=== PATIENT | female | born 1950 | race Caucasian/White ===

== ENCOUNTER 2020-02-22 23:04 | Emergency (ER) | payer MEDICARE, BC ==
[~2020-02-22 23:04] MED LIST: Acetaminophen/HYDROcodone 325-5 MG Tab ONE; predniSONE 10 MG Tab ONE
[2020-02-22 23:39] VITALS: BP 150/94; PULSE 84
--- NOTE | 2020-02-23 16:55 | EDM.PDOC ---
ED HPI GENERAL MEDICAL PROBLEM - General Chief Complaint: Upper Extremity Injury/Pain Stated Complaint: Rt hand pain Time Seen by Provider: 02/23/20 00:11 Source of Information: Reports: Patient History Limitations: Reports: No Limitations - History of Present Illness INITIAL COMMENTS - FREE TEXT/NARRATIVE: Patient with history of right wrist and hand pain. Has been sewing and using scissors to cut fabric to sew mask for Covid pandemic. Started in am with slight discomfort and discomfort has worsened with pain 9/10 at this time . Has been treatesd wtih prednisone several times in past for similar pain. Comlains of numbness in fingers of all five finger of right hand. Also complains of mild swelling of fingers on right hand. Hisotry of arthritis and states she has had carpal tunnel problems in past. 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) Right Hand Pain Score (Numeric/FACES): 9 - Related Data Allergies Allergy/AdvReac Type Severity Reaction Status Date / Time Sulfa (Sulfonamide Allergy Rash Verified 06/04/15 12:50 Antibiotics) Home Meds: Home Meds Lisinopril 5 mg PO DAILY 06/04/15 [History] Simvastatin 20 mg PO BEDTIME 06/04/15 [History] Past Medical History HEENT History: Reports: Impaired Vision Cardiovascular History: Reports: Hypertension Other Genitourinary History: bladder falling a little 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 Social & Family History - Tobacco Use Smoking Status *Q: Former Smoker Years of Tobacco use: 30 Used Tobacco, but Quit: Yes Month/Year Tobacco Last Used: 2006 Second Hand Smoke Exposure: No - Caffeine Use Caffeine Use: Reports: Coffee - Recreational Drug Use Recreational Drug Use: No Review of Systems - Review of Systems Review Of Systems: See Below Constitutional: Denies: Chills, Fever Respiratory: Denies: Shortness of Breath, Cough Cardiovascular: Denies: Chest Pain GI/Abdominal: Denies: Diarrhea, Nausea, Vomiting Genitourinary: Reports: No Symptoms Skin: Reports: Other Neurological: Reports: Numbness, Tingling, Other (of right hand all 5 fingers) Psychiatric: Reports: No Symptoms ED EXAM, GENERAL - Physical Exam Exam: See Below Exam Limited By: No Limitations General Appearance: Alert, Mild Distress Head: Atraumatic, Normocephalic Neck: Normal Inspection, Supple, Non-Tender Respiratory/Chest: No Respiratory Distress Extremities: Other (Mild ) Skin Exam: Warm, Intact, No Rash (Decreased sensation over palnar surface of all 5 fingers) Course - Vital Signs Last Recorded V/S: Last Vital Signs Temp 98.0 F 02/22/20 23:32 Pulse 84 02/22/20 23:32 Resp 16 02/22/20 23:32 BP 150/94 H 02/22/20 23:32 Pulse Ox 95 02/22/20 23:32 - Orders/Labs/Meds Labs: Laboratory Tests 02/23/20 02/23/20 Range/Units 00:35 00:35 WBC 8.7 (4.0-11.0) K/uL RBC 4.46 (3.80-5.80) M/uL Hgb 12.2 (11.5-16.5) g/dL Hct 38.2 (37.0-47.0) % MCV 86 (76-96) fL MCH 27.4 (27.0-32.0) pg MCHC 31.9 (31.0-35.0) g/dL RDW 13.7 (11.0-16.0) % Plt Count 252 (150-500) K/uL MPV 11.1 H (6.0-10.0) fL Neut % (Auto) 58.5 (45.0-70.0) % Lymph % (Auto) 29.0 (20.0-40.0) % [place] % (Auto) 8.0 (3.0-10.0) % Eos % (Auto) 3.7 (1.0-5.0) % Baso % (Auto) 0.8 H (0.0-0.5) % Neut # (Auto) 5.09 (2.00-7.50) K/uL Lymph # (Auto) 2.53 (1.50-4.00) K/uL [place] # (Auto) 0.70 (0.20-0.80) K/uL Eos # (Auto) 0.32 (0.04-0.40) K/uL Baso # (Auto) 0.07 (0.02-0.10) K/uL Uric Acid 4.2 (2.6-7.2) mg/dL - Re-Assessments/Exams Free Text/Narrative Re-Assessment/Exam: 02/23/20 17:10 Uric acid negative for elevation decreasing Right wrist x ray consistent with osteoarthritis by my reading. Differential includes Gout but unlikely due to low uric acid Carpal tunnel but with numbness in all fingers on exam less likely as usually only median nerve distribution Osteoarthritis with wrist swelling and radiculopathy most likely diagnosis but may need nerve conduction studies 02/23/20 18:32 Free Text/Narrative Re-Assessment/Exam: 02/23/20 17:14 Patietn treated with splint . Has splint at home and sling to keep hand elevated. Started on Tylenol and prednisone for inflammation of wrist Etiology to be determined . patietn may require carpal tunnel syndrome testing such as nerve conduction studies Departure - Departure Time of Disposition: 01:15 Disposition: Home, Self-Care 01 Clinical Impression: Wrist pain, acute Qualifiers: Laterality: right Qualified Code(s): M25.531 - Pain in right wrist - Discharge Information *PRESCRIPTION DRUG MONITORING PROGRAM REVIEWED*: No *COPY OF PRESCRIPTION DRUG MONITORING REPORT IN PATIENT BASSEM: No Instructions: Acetaminophen; Hydrocodone tablets or capsules, Osteoarthritis, Prednisone tablets Referrals: PCP,None [Primary Care Provider] - Forms: ED Department Discharge Additional Instructions: Take prednisone as ordered: 40mg daily for 5 days hydrocodone/APAP for pain. 1 tablet every 4-6 hours. May take tylenol also but remember that there is 325mg tylenol in pain medication. Not to exceed 4000mg in 24 hours. May wear sling, elevate right hand. Rest hand as much as possible Follow up with MD at clinic in 5 days regarding Osteo Arthritis possibly carpal tunnel Sepsis Event Note - Evaluation Sepsis Screening Result: No Definite Risk - Focused Exam Date Exam was Performed: 02/25/20 Time Exam was Performed: 08:38
--- NOTE | 2020-02-24 11:27 | CR ---
DATE OF SERVICE: 02/23/20 CLINICAL DATA: pain RIGHT HAND: Comparison is made to a prior exam dated 05/10/07. There is diffuse osteopenia. There are mild osteoarthritic changes involving multiple joints of the hand and wrist. No acute fracture or dislocation. No focal lytic or blastic bone lesions. [id number] [facility]
== END 2020-02-23 01:16 | disposition home or self-care (01) ==
LOC: LB.ED 23:04
DX: M25.531 Pain in right wrist (principal); I10 Essential (primary) hypertension; Z79.899 Other long term (current) drug therapy; Z88.2 Allergy status to sulfonamides; Z87.891 Personal history of nicotine dependence
CPT/HCPCS: 36415; 73120-RT; 84550; 85025; 99283; A9270-GY; J7512

== ENCOUNTER 2020-06-03 19:23 | Emergency (ER) | payer MEDICARE, BC ==
[2020-06-03] MEDS ORDERED: Acetaminophen/Codeine 300-30 MG Tab ONE (20:00)
--- NOTE | 2020-06-03 20:09 | EDM.PDOC ---
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 - Related Data Allergies Allergy/AdvReac Type Severity Reaction Status Date / Time Sulfa (Sulfonamide Allergy Rash Verified 06/04/15 12:50 Antibiotics) Home Meds: Home Meds Lisinopril 5 mg PO DAILY 06/04/15 [History] Simvastatin 20 mg PO BEDTIME 06/04/15 [History] Past Medical History HEENT History: Reports: Impaired Vision Cardiovascular History: Reports: Hypertension Other Genitourinary History: bladder falling a little 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 Social & Family History - Caffeine Use Caffeine Use: Reports: Coffee Review of Systems - Review of Systems Review Of Systems: See Below Constitutional: Reports: No Symptoms Musculoskeletal: Reports: Hand Pain Skin: Reports: No Symptoms Neurological: Reports: No Symptoms Psychiatric: Reports: No Symptoms ED EXAM, GENERAL - Physical Exam Exam: See Below Exam Limited By: No Limitations General Appearance: Alert, WD/WN, No Apparent Distress Head: Atraumatic, Normocephalic Neck: Normal Inspection, Supple Respiratory/Chest: No Respiratory Distress, Lungs Clear, Normal Breath Sounds Cardiovascular: Normal Peripheral Pulses, Regular Rate, Rhythm, No Edema Peripheral Pulses: 4+: Radial (R) Extremities: Normal Inspection, Normal Range of Motion, Normal Capillary Refill. No: Arm Pain, Zayra's Sign, Limited Range of Motion, Increased Warmth Neurological: Alert, Oriented, CN II-XII Intact, Normal Cognition, Normal Reflexes, No Motor/Sensory Deficits Skin Exam: Warm, Dry, Intact Course - Re-Assessments/Exams Free Text/Narrative Re-Assessment/Exam: 06/03/20 20:05 Pt has a h/o carpal tunnel syndrome - intermittently exacerbated pain. Pt states her primary is working getting her a referral to health information internship. Since her wrist pain comes and goes over the past year or two she has not been referred to ortho for any surgical procedure at this time. she has a wrist splint and sling at home but not wearing. Pt was given our bottle of T3 with instructions to take 1-2 tabs as needed for pain every 4-6 hrs and to wear her wrist splint. follow-up with her primary if not improving over next few days. Departure - Departure Time of Disposition: 20:09 Disposition: [facility] To [facility]ing 61 Condition: Good Clinical Impression: Wrist arthralgia, Carpal tunnel syndrome of right wrist - Discharge Information *PRESCRIPTION DRUG MONITORING PROGRAM REVIEWED*: Not Applicable *COPY OF PRESCRIPTION DRUG MONITORING REPORT IN PATIENT BASSEM: Not Applicable Instructions: Carpal Tunnel Syndrome, Preventing Carpal Tunnel Syndrome, Carpal Tunnel Syndrome, [id number], Pain Medicine Instructions, [id number] Referrals: PCP,None [Primary Care Provider] - Forms: ED Department Discharge
[2020-06-04 01:52] VITALS: BP 162/83; PULSE 100
== END 2020-06-03 20:02 | disposition home or self-care (01) ==
LOC: LB.ED 19:23
DX: G56.01 Carpal tunnel syndrome, right upper limb (principal); Z88.2 Allergy status to sulfonamides; Z79.899 Other long term (current) drug therapy
CPT/HCPCS: 99283; A9270-GY

== ENCOUNTER 2020-09-15 08:05 | Day surgery (SDC) | payer MEDICARE, BC ==
[~2020-09-15 08:05] MED LIST changes: -Acetaminophen/HYDROcodone 325-5 MG Tab ONE; +Acetaminophen/HYDROcodone 325-5 MG Tab PO PRN; +Lactated Ringers 1,000 ML IV SCH; +Sodium Chloride 0.9% 10 ML Syringe FLUSH PRN; +ceFAZolin 1 GM in Sodium Chloride 0.9% 50 ML IV ONE; -predniSONE 10 MG Tab ONE
[2020-09-15] MEDS ORDERED: Midazolam 1 MG/ML 2 ML SDV ONE (10:00)
[2020-09-15] MEDS ORDERED: Lidocaine 0.5% 50 ML SDV ONE (10:00)
[2020-09-15] MEDS ORDERED: Ketorolac 30 MG/ML SDV ONE (10:00)
[2020-09-15] MEDS ORDERED: Ondansetron 4 MG/2 ML SDV ONE (10:00)
[2020-09-15 10:38] VITALS: PULSE 88
[2020-09-15 11:00] VITALS: BP 134/77
== END 2020-09-15 11:15 | disposition home or self-care (01) ==
LOC: LB.SDS 08:05
PROVIDERS: ATTEND Orthopaedic Surgery
DX: G56.01 Carpal tunnel syndrome, right upper limb (principal); I10 Essential (primary) hypertension; M06.9 Rheumatoid arthritis, unspecified; E78.5 Hyperlipidemia, unspecified; Z79.899 Other long term (current) drug therapy; Z88.2 Allergy status to sulfonamides
CPT/HCPCS: A9270-GY; J1885; J2001; J2250; J2405; J7120

== ENCOUNTER 2020-12-08 07:59 | Day surgery (SDC) | payer MEDICARE, BC ==
[~2020-12-08 07:59] MED LIST changes: -Sodium Chloride 0.9% 10 ML Syringe FLUSH PRN; +ceFAZolin 1 GM in Premix Bag 1 BAG IV ONE; -ceFAZolin 1 GM in Sodium Chloride 0.9% 50 ML IV ONE
[2020-12-08] MEDS: Lactated Ringers 1,000 ML IV SCH (08:40)
[2020-12-08] MEDS ORDERED: fentaNYL 100 MCG/2 ML SDV ONE (10:00)
[2020-12-08] MEDS ORDERED: Ondansetron 4 MG/2 ML SDV ONE (10:00)
[2020-12-08 10:25] VITALS: BP 140/80; PULSE 87
== END 2020-12-08 10:55 | disposition home or self-care (01) ==
LOC: LB.SDS 07:59
PROVIDERS: ATTEND Orthopaedic Surgery
DX: G56.02 Carpal tunnel syndrome, left upper limb (principal); I10 Essential (primary) hypertension; E78.5 Hyperlipidemia, unspecified; Z88.2 Allergy status to sulfonamides; Z79.899 Other long term (current) drug therapy
CPT/HCPCS: 64721; J0690; J2405; J3010; J7120

== ENCOUNTER 2022-02-04 09:52 | Day surgery (SDC) | payer MEDICARE, BC ==
[~2022-02-04 09:52] MED LIST changes: -Acetaminophen/HYDROcodone 325-5 MG Tab PO PRN; -Lactated Ringers 1,000 ML IV SCH; +Metoclopramide 10 MG/2 ML SDV IV PRN; -ceFAZolin 1 GM in Premix Bag 1 BAG IV ONE
[2022-02-04] MEDS: Sodium Chloride 0.9% 1,000 ML IV SCH (10:28)
[2022-02-04] MEDS ORDERED: Propofol 1,000 MG/100 ML SDV ONE (11:00)
[2022-02-04 11:51] VITALS: BP 110/70; PULSE 94
== END 2022-02-04 13:00 | disposition home or self-care (01) ==
LOC: LB.SDS 09:52
PROVIDERS: ATTEND Surgery
DX: K62.89 Other specified diseases of anus and rectum (principal); Z91.018 Allergy to other foods
CPT/HCPCS: J2704; J7030

== ENCOUNTER 2024-02-19 17:41 | Emergency (ER) | payer MEDICARE, BC ==
[2024-02-19] MEDS ORDERED: Sodium Chloride 0.9% 10 ML Syringe FLUSH PRN (18:31)
[2024-02-19 18:52] LABS: HEMATOCRIT 35.3 % (37.0-47.0); HEMOGLOBIN 11.1 g/dL (11.5-16.5); MEAN CORPUSCULAR HEMOGLOBIN 28.4 pg (27.0-32.0); MEAN CORPUSCULAR HGB CONC 31.4 g/dL (31.0-35.0); MEAN PLATELET VOLUME 11.6 fL (6.0-10.0); RED BLOOD CELL COUNT 3.91 M/uL (3.80-5.80); RED CELL DISTRIBUTION WIDTH 15.2 % (11.0-16.0); WHITE BLOOD CELL COUNT,WBC 10.7 K/uL (4.0-11.0)
[2024-02-19 19:07] LABS: A/G RATIO 0.9 (0.8-2.0); ALBUMIN 3.4 g/dL (3.4-5.0); ANION GAP 12.2 mmol/L (5.0-15.0); BILIRUBIN TOTAL 0.3 mg/dL (0.0-1.0); BUN/CREATININE RATIO 11.8 (6-25); CALCIUM 9.1 mg/dL (8.5-10.1); CARBON DIOXIDE,CO2 28.5 mmol/L (21.0-32.0); CREATININE 1.02 mg/dL (0.55-1.02); EST CRCL DRUG DOSING (CG) 41.78 mL/min; MAGNESIUM 1.9 mg/dL (1.8-2.4); PHOSPHORUS 3.1 mg/dL (2.5-4.9); POTASSIUM,K 3.7 mmol/L (3.5-5.1); PROTEIN TOTAL,TP 7.4 g/dL (6.4-8.2); TROPONIN I HIGH SENSITIVITY 4.5 pg/ml (<=60.4)
[2024-02-19] MEDS: Sodium Chloride 0.9% 1,000 ML IV SCH (19:20)
[2024-02-19] MEDS: Morphine 4 MG/ML VIAL IVPUSH ONE (19:22)
[2024-02-19] MEDS: Ketorolac 30 MG/ML SDV IVPUSH ONE (19:24)
[2024-02-19] MEDS ORDERED: Acetaminophen/HYDROcodone 325-5 MG Tab ONE (20:00)
[2024-02-19 20:37] VITALS: BP 132/37; PULSE 81
== END 2024-02-19 20:25 | disposition home or self-care (01) ==
LOC: LB.ED 17:41 → SUPCPDRO 17:41 → LB.ED 20:25
DX: S06.9X9A Unspecified intracranial injury with loss of consciousness of unspecified duration, initial encounter (principal); S22.41XA Multiple fractures of ribs, right side, initial encounter for closed fracture; R55 Syncope and collapse; I10 Essential (primary) hypertension; Z88.2 Allergy status to sulfonamides; Z79.899 Other long term (current) drug therapy; X50.1XXA Overexertion from prolonged static or awkward postures, initial encounter
CPT/HCPCS: 36415; 70450; 71250; 80053; 82947; 83735; 84100; 84484; 85027; 93005; 96361; 96374; 96375; 99285-25; A9270-GY; J1885; J2270; J7030

== ENCOUNTER 2025-03-24 14:24 | Emergency (ER) | payer MEDICARE, BC ==
[2025-03-24] MEDS: Cyclobenzaprine 5 MG Tab PO SCH (16:17)
[2025-03-24] MEDS: Ketorolac 15 MG/ML SDV IM ONE (16:17)
[2025-03-24] MEDS: diazePAM 5 MG Tab PO ONE (16:17)
[2025-03-24 17:33] VITALS: BP 129/80; PULSE 71
== END 2025-03-24 16:55 | disposition home or self-care (01) ==
LOC: LB.ED 14:24
DX: M54.50 Low back pain, unspecified (principal); E78.00 Pure hypercholesterolemia, unspecified; I10 Essential (primary) hypertension; K21.9 Gastro-esophageal reflux disease without esophagitis; Z87.891 Personal history of nicotine dependence; Z88.2 Allergy status to sulfonamides; Z79.899 Other long term (current) drug therapy
CPT/HCPCS: 96372; 99283; A9270-GY; J1885